=== PATIENT | female | born 1940 | race Asian ===

== ENCOUNTER 2025-01-01 12:38 | Inpatient (IN) | payer MEDICARE, OTHER ==
[~2025-01-01] VITALS: Ht 152.4 cm; Wt 30.9 kg
[2025-01-01] MEDS ORDERED: BENZ-13 PO (13:21)
[2025-01-01] MEDS ORDERED: MULT-754 PO (13:21)
[2025-01-01] MEDS ORDERED: MIRT7.5T10 PO (13:21)
[2025-01-01] MEDS ORDERED: METO-357 PO (13:21)
[2025-01-01] MEDS ORDERED: LOSA25TA27 PO (13:21)
[2025-01-01] MEDS ORDERED: ATOR40TA PO (13:21)
[2025-01-01] MEDS ORDERED: GUAI-946 PO (13:21)
[2025-01-01] MEDS ORDERED: APIX5TAB PO (13:21)
[2025-01-01] MEDS ORDERED: CETI10TA14 PO (13:21)
[2025-01-01] MEDS ORDERED: DONE10TA44 PO (13:21)
[2025-01-01] MEDS ORDERED: FLUT16SP16 NS (13:21)
[2025-01-01 13:23] LABS: PLATELET COUNT (AUTO) 285 K/uL (150-450); RED BLOOD CELL COUNT(AUTO) 4.15 MIL/uL (4.0-5.2); RED CELL DISTRIBUTION WIDTH 13.4 % (11.5-15.0); WHITE BLOOD COUNT (AUTO) 6.7 K/uL (4.3-11.0)
[2025-01-01 13:37] LABS: CALCIUM, SERUM 8.9 mg/dL (8.5-10.1); CREATININE 0.8 mg/dL (0.6-1.3); SODIUM SERUM 139.0 mmol/L (136-145); UREA NITROGEN, BLOOD 12.0 mg/dL (7-18)
[2025-01-01 13:43] LABS: ASPARTATE AMINOTRANSFERASE 22.0 U/L (15-37); TOTAL PROTEIN, SERUM 8.2 g/dL (6.4-8.2)
[2025-01-01] MEDS ORDERED: ONDANSETRON HCL/PF 4 MG/2 ML VIAL IVP PRN (15:00)
[2025-01-01] MEDS ORDERED: Z GUARD REMEDY 4 OZ OINT TP PRN (15:00)
[2025-01-01] MEDS ORDERED: MAG HYDROX/AL HYDROX/SIMETH 30 ML UDC PO PRN (15:00)
[2025-01-01] MEDS ORDERED: ACETAMINOPHEN 325 MG TABLET PO PRN (15:00)
[2025-01-01] MEDS ORDERED: MAGNESIUM HYDROXIDE 30 ML UDC PO PRN (15:00)
[2025-01-01 20:00] VITALS: BP 147/78; TEMP 98.1; O2SAT 100
[2025-01-02 02:28] VITALS: BP 147/78; TEMP 98.1; O2SAT 96
[2025-01-02 07:11] LABS: PLATELET COUNT (AUTO) 271 K/uL (150-450); RED BLOOD CELL COUNT(AUTO) 3.94 MIL/uL (4.0-5.2); RED CELL DISTRIBUTION WIDTH 13.6 % (11.5-15.0); WHITE BLOOD COUNT (AUTO) 7.4 K/uL (4.3-11.0)
[2025-01-02] MEDS: PANTOPRAZOLE 40 MG TABLET.DR PO SCH (07:44)
[2025-01-02 07:50] LABS: CALCIUM, SERUM 8.8 mg/dL (8.5-10.1); CREATININE 0.6 mg/dL (0.6-1.3); PHOSPHORUS 3.2 mg/dL (2.5-4.9); SODIUM SERUM 142.0 mmol/L (136-145); UREA NITROGEN, BLOOD 13.0 mg/dL (7-18)
[2025-01-02 08:00] VITALS: BP 157/73; TEMP 98.1; O2SAT 96
[2025-01-02 16:00] VITALS: BP 146/62; TEMP 98.1; O2SAT 97
[2025-01-02 20:00] VITALS: BP 157/70; TEMP 97.5; O2SAT 97
[2025-01-03 07:30] VITALS: BP 167/65; TEMP 97.5; O2SAT 97
[2025-01-03] MEDS: ENSURE ENLIVE 237 ML LIQUID (VANILLA) PO SCH (08:08)
[2025-01-03] MEDS ORDERED: BENZONATATE 100 MG CAPSULE PO PRN (08:30)
[2025-01-03] MEDS: LOSARTAN POTASSIUM 25 MG TABLET PO SCH (08:53)
[2025-01-03] MEDS: ATORVASTATIN 40 MG TABLET PO SCH (08:53)
[2025-01-03] MEDS: cetrizine 10 MG TABLET PO SCH (08:54)
[2025-01-03] MEDS: MULTIVITAMINS,THERAGRAN 1 UDTAB TABLET PO SCH (08:54)
[2025-01-03] MEDS: METOPROLOL SUCCINATE 50 MG TAB.SR.24H PO SCH (08:54)
[2025-01-03] MEDS ORDERED: MIRTAZAPINE 15 MG TABLET PO PRN (09:00)
[2025-01-03] MEDS ORDERED: APIXABAN 5 MG TABLET PO SCH (09:30)
[2025-01-03] MEDS: FLUTICASONE PROPIONATE 16 GM BOTTLE NS SCH (10:07)
[2025-01-03] MEDS: APIXABAN 2.5 MG TABLET PO SCH (10:07)
[2025-01-03 20:00] VITALS: BP 150/90; TEMP 97.8; O2SAT 97
[2025-01-03] MEDS: MUPIROCIN OINT 2% 22 GM TUBE NS SCH (20:37)
[2025-01-03] MEDS: DONEPEZIL 5 MG TABLET PO SCH (21:09)
[2025-01-04 08:41] VITALS: BP 154/76; TEMP 97.5; O2SAT 97
[2025-01-04] MEDS ORDERED: APIX2.5T PO (10:13)
[2025-01-04 16:06] VITALS: BP 150/76; TEMP 97.6; O2SAT 98
== END 2025-01-04 18:35 | DRG 951 ==
LOC: ER 12:51 → MED 14:54
DX: Z04.89 Encounter for examination and observation for other specified reasons (principal); I48.91 Unspecified atrial fibrillation; Z79.01 Long term (current) use of anticoagulants; F01.50 Vascular dementia, unspecified severity, without behavioral disturbance, psychotic disturbance, mood disturbance, and anxiety; E78.5 Hyperlipidemia, unspecified; I10 Essential (primary) hypertension; Z79.899 Other long term (current) drug therapy
CPT/HCPCS: 36415; 71045-TC; 80048-TC; 80076-TC; 83735-TC; 84100-TC; 85025-TC; 87081-TC; G0378

== ENCOUNTER 2025-03-19 09:19 | Inpatient (IN) | payer MEDICARE, OTHER ==
[~2025-03-19] VITALS: Ht 144.8 cm; Wt 32.7 kg
[~2025-03-19 09:19] MED LIST: APIX2.5T PO; ATOR40TA PO; BENZ-13 PO; CETI10TA14 PO; DONE10TA44 PO; FLUT16SP16 NS; GUAI-946 PO; LOSA25TA27 PO; METO-357 PO; MIRT7.5T10 PO; MULT-754 PO
[2025-03-19] MEDS: IV NS 0.9% 500 ML BAG IV ONE (09:30)
[2025-03-19] MEDS: PANTOPRAZOLE 40 MG VIAL IV ONE (10:00)
[2025-03-19] MEDS: ONDANSETRON HCL/PF 4 MG/2 ML VIAL IV ONE (10:00)
[2025-03-19 10:01] LABS: PLATELET COUNT (AUTO) 364 K/uL (150-450); RED BLOOD CELL COUNT(AUTO) 3.92 MIL/uL (4.0-5.2); RED CELL DISTRIBUTION WIDTH 13.5 % (11.5-15.0); WHITE BLOOD COUNT (AUTO) 10.5 K/uL (4.3-11.0)
[2025-03-19] MEDS ORDERED: ONDANSETRON HCL/PF 4 MG/2 ML VIAL ONE (10:05)
[2025-03-19] MEDS ORDERED: PANTOPRAZOLE 40 MG VIAL ONE (10:05)
[2025-03-19 10:17] LABS: INR 1.21 (0.91-1.10)
[2025-03-19 10:25] LABS: ASPARTATE AMINOTRANSFERASE 25 U/L (15-37); CALCIUM, SERUM 8.9 mg/dL (8.5-10.1); CREATININE 0.8 mg/dL (0.6-1.3); SODIUM SERUM 138 mmol/L (136-145); TOTAL PROTEIN, SERUM 8.6 g/dL (6.4-8.2); UREA NITROGEN, BLOOD 26 mg/dL (7-18)
[2025-03-19] MEDS ORDERED: LEVOFLOXACIN (250MG) 250 MG TABLET ONE (10:50)
[2025-03-19] MEDS ORDERED: IOHEXOL-350 100 ML VIAL IV ONE (10:51)
[2025-03-19] MEDS ORDERED: IV NS 0.9% 250 ML IV ONE (10:51)
[2025-03-19] MEDS: LEVOFLOXACIN (250MG) 250 MG TABLET PO ONE (10:52)
[2025-03-19 12:00] VITALS: BP 117/71; TEMP 97.7; O2SAT 93
[2025-03-19] MEDS ORDERED: ONDANSETRON HCL/PF 4 MG/2 ML VIAL IVP PRN (13:30)
[2025-03-19] MEDS ORDERED: MAGNESIUM HYDROXIDE 30 ML UDC PO PRN (13:30)
[2025-03-19] MEDS ORDERED: MAG HYDROX/AL HYDROX/SIMETH 30 ML UDC PO PRN (13:30)
[2025-03-19] MEDS ORDERED: ALBUTEROL FS 2.5 MG/0.5 ML VIAL.NEB NEB PRN (13:30)
[2025-03-19] MEDS ORDERED: ACETAMINOPHEN 325 MG TABLET PO PRN (13:30)
[2025-03-19] MEDS ORDERED: IPRATROPIUM NEB FS 0.5 MG/2.5 ML AMPUL.NEB NEB PRN (13:30)
[2025-03-19] MEDS: IV NS 0.9% 1,000 ML IV PRN (13:50)
[2025-03-19 14:11] LABS: LDL 46.0 mg/dL (0-99)
[2025-03-19] MEDS: AZITHROMYCIN 500 MG in IV D5W 250 ML IV SCH (14:22)
[2025-03-19] MEDS: Z GUARD REMEDY 4 OZ OINT TP PRN (14:24)
[2025-03-19] MEDS: CEFTRIAXONE 1 G in IV D5W 50 ML IV SCH (15:47)
[2025-03-19 16:00] VITALS: BP 112/70; TEMP 98.1; O2SAT 99
[2025-03-19 20:00] VITALS: BP 138/72; TEMP 98; O2SAT 98
[2025-03-20] VITALS: BP 105/64; TEMP 98; O2SAT 98
[2025-03-20 04:00] VITALS: BP 109/69; TEMP 98.2; O2SAT 98
[2025-03-20] MEDS: PANTOPRAZOLE 40 MG TABLET.DR PO SCH (07:47)
[2025-03-20 08:00] VITALS: BP 104/78; TEMP 98.6; O2SAT 95
[2025-03-20 08:39] LABS: PLATELET COUNT (AUTO) 335 K/uL (150-450); RED BLOOD CELL COUNT(AUTO) 3.66 MIL/uL (4.0-5.2); RED CELL DISTRIBUTION WIDTH 13.4 % (11.5-15.0); WHITE BLOOD COUNT (AUTO) 7.4 K/uL (4.3-11.0)
[2025-03-20 08:43] LABS: CALCIUM, SERUM 8.6 mg/dL (8.5-10.1); CREATININE 0.9 mg/dL (0.6-1.3); PHOSPHORUS 2.5 mg/dL (2.5-4.9); SODIUM SERUM 142.0 mmol/L (136-145); UREA NITROGEN, BLOOD 16.0 mg/dL (7-18)
[2025-03-20 12:00] VITALS: BP 104/67; TEMP 98.4; O2SAT 99
[2025-03-20] MEDS: ENSURE ENLIVE 237 ML LIQUID (VANILLA) PO SCH (13:29)
[2025-03-20 16:00] VITALS: BP 114/68; TEMP 98.4; O2SAT 97
[2025-03-20] MEDS: APIXABAN 5 MG TABLET PO SCH (17:44)
[2025-03-20 20:00] VITALS: BP 120/70; TEMP 98.2; O2SAT 97
[2025-03-21] VITALS: BP 132/75; TEMP 97.7; O2SAT 95
[2025-03-21 04:00] VITALS: BP 137/80; TEMP 97.7; O2SAT 96
[2025-03-21 06:25] LABS: PLATELET COUNT (AUTO) 320 K/uL (150-450); RED BLOOD CELL COUNT(AUTO) 3.57 MIL/uL (4.0-5.2); RED CELL DISTRIBUTION WIDTH 13.3 % (11.5-15.0); WHITE BLOOD COUNT (AUTO) 6.3 K/uL (4.3-11.0)
[2025-03-21 06:39] LABS: ASPARTATE AMINOTRANSFERASE 25.0 U/L (15-37); CALCIUM, SERUM 8.2 mg/dL (8.5-10.1); CREATININE 0.7 mg/dL (0.6-1.3); PHOSPHORUS 2.6 mg/dL (2.5-4.9); SODIUM SERUM 144.0 mmol/L (136-145); TOTAL PROTEIN, SERUM 6.7 g/dL (6.4-8.2); UREA NITROGEN, BLOOD 12.0 mg/dL (7-18)
[2025-03-21 08:20] VITALS: BP 139/75; TEMP 98.7; O2SAT 97
[2025-03-21] MEDS: DIVALPROEX SODIUM 125 MG TABLET.DR PO SCH (09:17)
[2025-03-21 12:10] VITALS: BP 123/64; TEMP 98.9; O2SAT 96
[2025-03-21] MEDS: AZITHROMYCIN 250 MG TABLET PO SCH (15:13)
[2025-03-21 16:20] VITALS: BP 129/72; TEMP 99.3; O2SAT 96
[2025-03-21 20:00] VITALS: BP 110/79; TEMP 98.1; O2SAT 95
[2025-03-21] MEDS: ZOLPIDEM TARTRATE 5 MG TABLET PO PRN (22:36)
[2025-03-22] VITALS: BP 141/67; TEMP 98.1; O2SAT 95
[2025-03-22 04:00] VITALS: BP 139/79; TEMP 97.5; O2SAT 95
[2025-03-22 06:43] LABS: PLATELET COUNT (AUTO) 287 K/uL (150-450); RED BLOOD CELL COUNT(AUTO) 3.27 MIL/uL (4.0-5.2); RED CELL DISTRIBUTION WIDTH 13.4 % (11.5-15.0); WHITE BLOOD COUNT (AUTO) 7.0 K/uL (4.3-11.0)
[2025-03-22 08:00] VITALS: BP 142/80; TEMP 98.6; O2SAT 96
[2025-03-22 12:00] VITALS: BP 132/90; TEMP 98.5; O2SAT 95
[2025-03-22] MEDS ORDERED: APIX5TAB PO (13:17)
[2025-03-22] MEDS ORDERED: LEVO750T46 PO (13:17)
[2025-03-22 16:00] VITALS: BP 137/95; TEMP 98.8; O2SAT 97
== END 2025-03-22 18:25 | DRG 175 ==
LOC: ER 09:20 → TELE1 10:48
DX: I26.99 Other pulmonary embolism without acute cor pulmonale (principal); I21.A1 Myocardial infarction type 2; J18.9 Pneumonia, unspecified organism; E44.0 Moderate protein-calorie malnutrition; Z68.1 Body mass index [BMI] 19.9 or less, adult; F03.918 Unspecified dementia, unspecified severity, with other behavioral disturbance; G93.40 Encephalopathy, unspecified; J47.0 Bronchiectasis with acute lower respiratory infection; J21.9 Acute bronchiolitis, unspecified; I10 Essential (primary) hypertension; D64.9 Anemia, unspecified; E78.5 Hyperlipidemia, unspecified; E88.09 Other disorders of plasma-protein metabolism, not elsewhere classified; I25.5 Ischemic cardiomyopathy; I48.91 Unspecified atrial fibrillation; K21.9 Gastro-esophageal reflux disease without esophagitis; Z79.01 Long term (current) use of anticoagulants; F39 Unspecified mood [affective] disorder; F29 Unspecified psychosis not due to a substance or known physiological condition
CPT/HCPCS: 36415; 71045-TC; 80048-TC; 80053-TC; 80061-TC; 80076-TC; 83735-TC; 83880; 84100-TC; 84443-TC; 84484-TC; 85025-TC; 85378-TC; 85730-TC; 86850-TC; 87040-TC; 87081-TC; 93307-TC; 93970-TC; 97110-TC; 97116-TC; 97530-TC; G0378; J0456; J0696; J2405; J2470; J3490; J7030; J7040; J7050; J7060; Q9967